=== PATIENT | female | born 1950 | race Caucasian/White ===

== ENCOUNTER 2019-02-18 16:08 | Emergency (ER) | payer OTHER ==
--- NOTE | 2019-02-18 16:43 | PDOC ---
Rapid Medical Evaluation Time Seen by Provider: 02/18/19 16:40 Medical Evaluation: 02/18/19 16:40 I have performed a brief in-person evaluation of this patient. The patient presents with a chief complaint of: right 4th toe pain Pertinent physical exam findings: swollen and ecchymotic 4th toe I have ordered the following: xray The patient will proceed to the ED for further evaluation. Discharge Disposition - Diagnosis Toe pain - Referrals - Patient Instructions - Post Discharge Activity
[2019-02-18 16:46] VITALS: BP 149/66; PULSE 96; TEMP 98.6; BMI 64.5
[2019-02-18] MEDS ORDERED: IBUPROFEN 400 MG TABLET (FP) PO ONE (18:10)
--- NOTE | 2019-02-18 18:16 | PDOC ---
History of Present Illness - General Chief Complaint: Bone Injury Stated Complaint: RT FOOT PAIN Time Seen by Provider: 02/18/19 16:40 History Source: Patient Exam Limitations: Clinical Condition - History of Present Illness Initial Comments: 02/18/19 18:22 Patient with history of diabetes present with complaint of right foot pain and blister to right fourth toe status post [place] in the ocean yesterday and we've ordered hitting the right foot twisting right foot. Reported swelling and increased pain to distal aspect of right foot. Reported pain is worse with ambulation. Patient did not take anything for pain. Denies any other symptoms Occurred: reports: yesterday Past History - Past Medical History Allergies/Adverse Reactions: Allergies Allergy/AdvReac Type Severity Reaction Status Date / Time No Known Allergies Allergy Verified 02/18/19 16:54 Home Medications: Ambulatory Orders Ibuprofen 800 mg PO Q8H PRN #20 tablet 02/18/19 Silver Sulfadiazine 1% Top Cr [Silvadene -] 1 applic TP BID #1 jar 02/18/19 COPD: No Diabetes: Yes Kidney Stones: Yes - Immunization History Immunization Up to Date: Yes - Suicide/Smoking/Psychosocial Hx Smoking History: Never smoked Hx Alcohol Use: No Drug/Substance Use Hx: No Review of Systems - Review of Systems Able to Perform ROS?: Yes Is the patient limited [place] proficient: No Constitutional: No: Chills, Fever, Malaise, Weakness HEENTM: No: Symptoms Reported Respiratory: No: Symptoms reported Cardiac (ROS): No: Symptoms Reported Musculoskeletal: Yes: Symptoms Reported, See HPI, Joint Swelling (right foot), Muscle Pain (top of right foot) Integumentary: Yes: Symptoms Reported, See HPI, Other (blister to right 4th toe) Neurological: No: Numbness, Paresthesia, Tingling All Other Systems: Reviewed and Negative *Physical Exam - Vital Signs Last Vital Signs Temp Pulse Resp BP Pulse Ox 98.6 F 96 H 18 149/66 97 02/18/19 16:43 02/18/19 16:43 02/18/19 16:43 02/18/19 16:43 02/18/19 16:43 - Physical Exam Comments: 02/18/19 18:27 GENERAL: Well developed, well nourished. Awake and alert in mild acute distress. PULMONARY: No evidence of respiratory distress. MUSCULOSKELETAL : Moderate tenderness to dorsal of right foot over the third to fourth metatarsal with mild swelling to distal aspect of right foot on dorsum. Blister formation to dorsal aspect of right distal phalange of right fourth toe. No bony deformities SKIN: Warm and dry. Normal capillary refill. NEUROLOGICAL: Alert, awake, appropriate. No motor deficits in the lower extremities. Gait is normal without ataxia. PSYCHIATRIC: Cooperative. Good eye contact. Appropriate mood and affect. General Appearance: Yes: Nourished, Appropriately Dressed, Mild Distress Medical Decision Making - Medical Decision Making 02/18/19 18:23 Patient with history of diabetes present with complaint of right foot pain and blister to right fourth toe status post being [place] the [place] yesterday and we've ordered hitting the right foot twisting right foot. Reported swelling and increased pain to distal aspect of right foot. Reported pain is worse with ambulation. Patient did not take anything for pain. Denies any other symptoms Exam significant for mild swelling to dorsum of right foot blister formation over distal phalange of right fourth toe on dorsal aspect. No open wounds or drainage. Moderate tenderness over distal aspect of dorsum of right foot over the third to fourth metatarsal area X-ray of right foot and toes shows no acute fracture. Symptoms likely for sprain with blister to right fourth toe. Patient be discharged home on Motrin when necessary for foot pain and Silvadene cream for blister formation toe. Patient advised to apply warm compresses to foot 2-3 times a day as needed for pain and swelling. Patient advised to follow-up with podiatry if symptoms persist for more than 4 days 02/18/19 18:28 Right foot wrapped with Garrett bandage prior to discharge *DC/Admit/Observation/Transfer Diagnosis at time of Disposition: Unspecified sprain of right foot, initial encounter Toe pain Qualifiers: Laterality: right Qualified Code(s): M79.674 - Pain in right toe(s) Blister of toe of right foot without infection Qualifiers: Encounter type: initial encounter Qualified Code(s): S90.424A - Blister ( nonthermal), right lesser toe(s), initial encounter - Discharge Dispostion Disposition: HOME Condition at time of disposition: Stable Decision to Admit order: No - Prescriptions Prescriptions: Ibuprofen 800 mg PO Q8H PRN #20 tablet PRN Reason: foot pain Silver Sulfadiazine 1% Top Cr [Silvadene -] 1 applic TP BID #1 jar - Referrals Referrals: Juanito Dalton MD [Staff Physician] - - Patient Instructions Printed Discharge Instructions: DI for Foot Sprain, DI for Blisters Additional Instructions: Use medication as prescribed. Take Motrin as needed for foot pain. Apply warm compresses to for 2-3 times a day as needed for swelling. Follow-up referred podiatry if no improvement in 4 days. Use prescribed Silvadene cream twice a day to blister on to healed Print Language: MARSHALLESE - Post Discharge Activity
== END 2019-02-18 18:30 | disposition home or self-care (01) ==
LOC: JERFT 16:08
DX: S90.424A Blister (nonthermal), right lesser toe(s), initial encounter (principal); E11.9 Type 2 diabetes mellitus without complications
CPT/HCPCS: 73660-TC-FY; 99281-25